=== PATIENT | male | born 1980 | race Caucasian/White ===

== ENCOUNTER 2017-05-09 03:55 | Emergency (ER) | payer OTHER ==
[~2017-05-09] VITALS: Ht 175.3 cm; Wt 79.4 kg
[~2017-05-09 03:55] MED LIST: NAPROSYN500 MG PO; ROBAXIN500 MG PO; TRAMADOL 50 MG50 MG PO
[2017-05-09 04:45] LABS: INFLUENZA A ANTIGEN None Detected (None Detect); INFLUENZA B ANTIGEN None Detected (None Detect)
[2017-05-09 05:44] VITALS: BP 125/72
== END 2017-05-09 05:45 | disposition home or self-care (01) ==
LOC: M.ERS 03:55
PROVIDERS: Personal Emergency Response Attendant
DX: B34.9 Viral infection, unspecified (principal); E86.0 Dehydration

== ENCOUNTER 2020-12-31 18:59 | Emergency (ER) | payer OTHER ==
[~2020-12-31] VITALS: Ht 175.3 cm; Wt 86.2 kg
[2020-12-31] MEDS ORDERED: CIPROFLOXIN HC2.5 M1 OPHTHALMIC (19:42)
[2020-12-31 19:50] VITALS: BP 171/111
== END 2020-12-31 19:50 | disposition home or self-care (01) ==
LOC: M.ERS 18:59
DX: T15.02XA Foreign body in cornea, left eye, initial encounter (principal); W45.8XXA Other foreign body or object entering through skin, initial encounter; Y93.89 Activity, other specified; Y92.89 Other specified places as the place of occurrence of the external cause; Y99.8 Other external cause status